=== PATIENT | female | born 1995 | race African-American/Black ===

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

== ENCOUNTER 2019-12-09 09:13 | Emergency (ER) | payer OTHER ==
[~2019-12-09] VITALS: Ht 162.6 cm; Wt 54.0 kg
[2019-12-09 09:17] VITALS: Ht 162.6 cm; Wt 54.0 kg
[2019-12-09 11:09] VITALS: BP 110/64
== END 2019-12-09 11:09 | disposition home or self-care (01) ==
LOC: ED 09:13
DX: R07.89 Other chest pain (principal); R22.2 Localized swelling, mass and lump, trunk; Z88.0 Allergy status to penicillin